=== PATIENT | female | born 2000 | race Caucasian/White ===

== ENCOUNTER 2024-07-11 11:40 | Emergency (ER) | payer OTHER ==
[~2024-07-11] VITALS: Ht 167.6 cm; Wt 83.9 kg
[2024-07-11] MEDS ORDERED: IBUP-1955 PO (12:04)
[2024-07-11] MEDS ORDERED: PANT40TA49 PO (12:04)
[2024-07-11] MEDS ORDERED: FAMO40TA7 PO (12:04)
[2024-07-11] MEDS ORDERED: FERR325T24 PO (12:04)
[2024-07-11] MEDS ORDERED: ERGO500040 PO (12:04)
[2024-07-11 12:43] LABS: BASOPHILS % (AUTO) 0.8 % (0.0-2.0); EOSINOPHILS % (AUTO) 0.8 % (0.0-7.0); HEMATOCRIT 35.8 % (31.2-41.9); HEMOGLOBIN 11.6 g/dL (10.9-14.3); LYMPHOCYTES # (AUTO) 2.1 K/uL (0.8-4.8); LYMPHOCYTES % (AUTO) 47.3 % (20.5-51.5); MEAN CORPUSCULAR HEMOGLOBIN 22.3 uug (24.7-32.8); MEAN CORPUSCULAR HGB CONC 32 g/dL (32.3-35.6); MEAN CORPUSCULAR VOLUME 68.9 fL (75.5-95.3); MONOCYTES # (AUTO) 0.4 K/uL (0.1-1.30); MONOCYTES % (AUTO) 8.4 % (0.0-11.0); NEUTROPHILS # (AUTO) 1.9 K/uL (1.8-8.9); NEUTROPHILS % (AUTO) 42.7 % (38.5-71.5); PLATELET COUNT (AUTO) 245 K/uL (179-408); RED BLOOD CELL COUNT(AUTO) 5.19 MIL/uL (3.63-4.92); RED CELL DISTRIBUTION WIDTH 15.4 % (12.3-17.7); WHITE BLOOD COUNT (AUTO) 4.4 K/uL (3.8-11.8)
[2024-07-11 12:46] LABS: DIFFERENTIAL COMMENT 1
[2024-07-11 12:52] LABS: CREATININE 0.7 mg/dL (0.6-1.3); POTASSIUM 3.6 mmol/L (3.5-5.1)
[2024-07-11 12:56] LABS: *BILIRUBIN,URIN NEGATIVE (NEGATIVE); *BLOOD, URINE 3+ (NEGATIVE); *CLARITY,URINE CLEAR (CLEAR); *COLOR,URINE YELLOW (YELLOW); *KETONES,URINE NEGATIVE (NEGATIVE); *PROTEIN,URINE NEGATIVE (NEGATIVE); *UROBILINOGEN,URINE 0.2 E.U./dl (NORMAL); LEUKOCYTE ESTERASE ,URINE 1+ (NEGATIVE); NITRITE, URINE NEGATIVE (NEGATIVE); PH,URINE 6.5 (5.0-8.0); UGLUCOSE NEGATIVE (NEGATIVE)
[2024-07-11 12:57] LABS: BILIRUBIN,DIRECT 0.2 mg/dL (0.0-0.2); BILIRUBIN,TOTAL 0.7 mg/dL (0.2-1.0); TOTAL PROTEIN, SERUM 8.5 g/dL (6.4-8.2)
[2024-07-11 13:00] LABS: *URINE HCG, QUAL NEGATIVE (NEGATIVE); BACTERIA,URINE FEW /HPF (NONE SEEN); RBC,URINE 50-80 /HPF (0-3); SQUAMOUS EPITHELIAL CELL,UR FEW /HPF (NONE SEEN); WBC,URINE 0-3 /HPF (0-3)
[2024-07-11 13:30] LABS: IRON, SERUM 85 ug/dL (50-175)
[2024-07-11] MEDS ORDERED: TETR-57 PO (14:30)
[2024-07-11] MEDS ORDERED: OMEP20TA20 PO (14:30)
[2024-07-11] MEDS ORDERED: METR500T PO (14:30)
[2024-07-11] MEDS ORDERED: BISM262T18 PO (14:30)
[2024-07-11] MEDS ORDERED: viscous lidocaine (14:48)
[2024-07-11 15:06] VITALS: BP 138/92; O2SAT 99
== END 2024-07-11 15:08 | disposition home or self-care (01) ==
LOC: ER 11:40
DX: K29.70 Gastritis, unspecified, without bleeding (principal); E88.810 Metabolic syndrome; I10 Essential (primary) hypertension; K21.9 Gastro-esophageal reflux disease without esophagitis; Z79.899 Other long term (current) drug therapy
CPT/HCPCS: 36415; 83550; 84703; 85025; 87086; A4606; A4663

== ENCOUNTER 2024-07-18 16:47 | Emergency (ER) | payer OTHER ==
[~2024-07-18] VITALS: Ht 167.6 cm; Wt 81.6 kg
[~2024-07-18 16:47] MED LIST: BISM262T18 PO; ERGO500040 PO; FAMO40TA7 PO; FERR325T24 PO; IBUP-1955 PO; METR500T PO; OMEP20TA20 PO; PANT40TA49 PO; TETR-57 PO; viscous lidocaine
[2024-07-18] MEDS ORDERED: AMOX500T2 PO (18:44)
[2024-07-18] MEDS ORDERED: CLAR-45 PO (18:44)
[2024-07-18] MEDS ORDERED: METR500T PO (18:44)
[2024-07-18] MEDS ORDERED: ACET1TAB23 PO (18:44)
[2024-07-18] MEDS ORDERED: LORA-259 PO (18:44)
[2024-07-18] MEDS ORDERED: OMEP20TA5 PO (18:44)
[2024-07-18 20:07] VITALS: BP 123/77; TEMP 98; O2SAT 99
== END 2024-07-18 19:53 | disposition home or self-care (01) ==
LOC: ER 16:49
DX: K29.70 Gastritis, unspecified, without bleeding (principal); M25.512 Pain in left shoulder; R05.9 Cough, unspecified; R61 Generalized hyperhidrosis; R07.9 Chest pain, unspecified; K21.9 Gastro-esophageal reflux disease without esophagitis; Z79.899 Other long term (current) drug therapy
CPT/HCPCS: 71045; A4606; A4663